=== PATIENT | female | born 1930 | race Caucasian/White ===

== ENCOUNTER 2018-03-03 18:42 | Emergency (ER) | payer OTHER ==
[~2018-03-03] VITALS: Ht 162.6 cm; Wt 65.8 kg
[2018-03-03] MEDS ORDERED: METOPROLOL TARTRATE 50 MG TAB PO ONE (19:00)
[2018-03-03] MEDS ORDERED: MORPHINE SULFATE 4 MG/ML SYR/VIAL IV ONE (21:30)
[2018-03-03] MEDS ORDERED: ONDANSETRON HCL 4 MG/2 ML VIAL IV ONE (21:30)
[2018-03-03] MEDS ORDERED: cloNIDine HCL 0.1 MG TAB PO ONE (22:45)
[2018-03-03 22:51] LABS: Urine Amorphous Crystal FEW /hpf (None Seen); Urine Bacteria FEW /hpf (None Seen); Urine Blood Negative /uL (Negative); Urine Hyaline Cast FEW /lpf (0 - 2); Urine Mucus FEW (None Seen); Urine WBC 2 /hpf (0 - 5)
[2018-03-04 01:00] LABS: Eosinophils # (auto) 0 uL; Lymphocytes # (auto) 0.9 uL
[2018-03-04 01:02] LABS: Basophils # (auto) 0 uL; Basophils % (auto) 0.3 % (0.0-2.0); Hematocrit 42.3 % (36.0-46.0); Hemoglobin 13.9 g/dL (12.2-16.2); Mean Corpuscular Hemoglobin 36.6 pg (28.0-32.0); Mean Corpuscular Hgb Conc. 32.9 g/dL (32.0-36.0); Mean Corpuscular Volume 111.1 fL (80.0-100.0); Monocytes % (auto) 11.5 % (0.0-12.0); Neutrophils # (auto) 6.8 uL; Neutrophils % (auto) 78.2 % (37.0-80.0); Nucleated Red Blood Cells % 0.1 %; Platelet Count (auto) 268 10^3/uL (140-450); Red Cell Distribution Width 13.8 % (11.8-14.3); White Blood Cell 8.7 10^3/uL (4.4-10.8)
[2018-03-04 01:17] LABS: Albumin 3.5 g/dL (3.4-5.0); BUN/Creatinine Ratio 13.6; Calcium 9.5 mg/dL (8.5-10.1); Potassium 4.2 mmol/L (3.5-5.1)
[2018-03-04 01:20] LABS: Bilirubin, Total 1.4 mg/dL (0.2-1.0); Total Protein 7.6 g/dL (6.4-8.2)
[2018-03-04 04:26] VITALS: BP 141/67
[2018-03-04] MEDS ORDERED: HYDROcodone-ACET 10/325MG TAB PO ONE (05:15)
== END 2018-03-04 05:20 | disposition home or self-care (01) ==
LOC: EDBD 18:42 → ER 18:45
DX: R22.0 Localized swelling, mass and lump, head (principal); R53.1 Weakness; I10 Essential (primary) hypertension; K21.9 Gastro-esophageal reflux disease without esophagitis; Z87.442 Personal history of urinary calculi
CPT/HCPCS: 36415; 70360; 70490; 80053; 81001; 85025; 93005; 96374; 96375; 99285; J2270; J2405

== ENCOUNTER 2019-01-10 17:29 | Inpatient (IN) | payer OTHER ==
[~2019-01-10] VITALS: Ht 162.6 cm; Wt 64.4 kg
[2019-01-10] MEDS ORDERED: cloNIDine HCL 0.1 MG TAB ONE (17:58)
[2019-01-10] MEDS ORDERED: cloNIDine HCL 0.1 MG TAB PO ONE (18:15)
[2019-01-10 19:15] LABS: Basophils # (auto) 0.1 uL; Eosinophils # (auto) 0 uL; Eosinophils % (auto) 0.4 % (0.0-7.0); Hemoglobin 13.6 g/dL (12.2-16.2); White Blood Cell 5.4 10^3/uL (4.4-10.8)
[2019-01-10 19:18] LABS: Basophils % (auto) 1.1 % (0.0-2.0); Hematocrit 41.4 % (36.0-46.0); Lymphocytes % (auto) 17.7 % (10.0-50.0); Mean Corpuscular Hemoglobin 35.5 pg (28.0-32.0); Mean Corpuscular Hgb Conc. 32.9 g/dL (32.0-36.0); Mean Corpuscular Volume 107.9 fL (80.0-100.0); Monocytes # (auto) 0.4 uL; Monocytes % (auto) 7.2 % (0.0-12.0); Neutrophils % (auto) 73.6 % (37.0-80.0); Nucleated Red Blood Cells % 0.1 %; Platelet Count (auto) 258 10^3/uL (140-450); Red Blood Cells 3.84 10^6/uL (4.0-5.20); Red Cell Distribution Width 13.6 % (11.8-14.3)
[2019-01-10 19:29] LABS: Alanine Aminotransferase 20 U/L (13-56); Albumin 3.7 g/dL (3.4-5.0); Anion Gap 7 (5-15); Aspartate Aminotransferase 16 U/L (15-37); Blood Urea Nitrogen 16 mg/dL (7-18); Calcium 9.5 mg/dL (8.5-10.1); Carbon Dioxide 25 mmol/L (21-32); Chloride 110 mmol/L (98-107); GFR African American 67 mL/min; GFR Non-African American 56 mL/min; Glucose 116 mg/dL (74-106); Potassium 3.7 mmol/L (3.5-5.1); Sodium 142 mmol/L (136-145)
[2019-01-10 19:33] LABS: Alkaline Phosphatase 115 U/L (45-117); Bilirubin, Total 0.9 mg/dL (0.2-1.0); Total Protein 7.1 g/dL (6.4-8.2)
[2019-01-10] MEDS ORDERED: hydrALAZINE HCL 20 MG/ML VL IV ONE (20:30)
[2019-01-10] MEDS ORDERED: TEMAZEPAM 15 MG CAP PO PRN (22:30)
[2019-01-10] MEDS ORDERED: MORPHINE SULF INJ 2 MG/ML SYRINGE 1ML IV PRN (22:30)
[2019-01-10] MEDS ORDERED: ACETAMINOPHEN 325 MG TAB PO PRN (22:30)
[2019-01-10] MEDS ORDERED: DOCUSATE SOD 100 MG CAP PO PRN (22:30)
[2019-01-10] MEDS ORDERED: cloNIDine HCL 0.1 MG TAB PO PRN (22:30)
[2019-01-10] MEDS ORDERED: ONDANSETRON HCL 4 MG/2 ML VIAL IV PRN (22:30)
[2019-01-10] MEDS ORDERED: NITROGLYCERIN 0.4 MG SL TAB SL PRN (22:30)
--- NOTE | 2019-01-10 23:40 | NUR ---
Telemetry admit from ER WORKS,JINNY admitted to Telemetry unit after SBAR received. Patient oriented to GRAHAM BLAIR, primary RN, unit, room, bed, and unit policies regarding patient care and visiting hours. Patient now on continuous telemetry monitoring, tele box #74 and telemetry reading on arrival to unit is SR. Patient weighed by bedscale and encouraged to call if they need something. All questions and concerns addressed, patient verbalized understanding.
[2019-01-11] VITALS (7 sets, daily range): BP systolic 125–168; BP diastolic 68–91
--- NOTE | 2019-01-11 00:10 | NUR ---
Pt states that her daughter will bring in her list of home medications during the day.
[2019-01-11] MEDS ORDERED: PNEUMOCOCCAL VACC POLYS 25 MCG/0.5 ML VIAL IM ONE (01:15)
[2019-01-11 05:59] LABS: BUN/Creatinine Ratio 17.4; Calcium 9.2 mg/dL (8.5-10.1); Potassium 4.3 mmol/L (3.5-5.1)
[2019-01-11 06:09] LABS: Cholesterol 166 mg/dL (< 200); HDL Cholesterol 56 mg/dL (40-59); LDL Cholesterol 96 mg/dL (< 100); Triglycerides 83 mg/dL (< 150)
[2019-01-11] MEDS ORDERED: ENOXAPARIN SOD 40 MG/0.4 ML SYRINGE SC SCH (10:00)
[2019-01-11] MEDS: FAMOTIDINE 20 MG TAB PO SCH ×2 (10:27→22:18)
[2019-01-11] MEDS: ENOXAPARIN SOD 40 MG/0.4 ML SYRINGE SC SCH (10:28)
[2019-01-11] MEDS ORDERED: amLODIPine BESYLATE 5 MG TAB PO ONE (10:30)
[2019-01-11] MEDS ORDERED: OMEP20TA PO (11:00)
[2019-01-11] MEDS ORDERED: FELO5TAB PO (11:00)
[2019-01-11] MEDS ORDERED: METO-159 PO (11:00)
[2019-01-11] MEDS ORDERED: HYDR500C PO (11:00)
[2019-01-11] MEDS ORDERED: SIMV-8 PO (11:02)
--- NOTE | 2019-01-11 15:13 | NUR ---
Call to [facility] Call to [facility] at this time to verify patient's home medications. No answer after 5 minutes. Will attempt to call at another time.
[2019-01-11] MEDS: LISINOPRIL 20 MG TAB PO SCH ×2 (15:17→22:19)
[2019-01-11] MEDS: HYDROXYUREA 500 MG CAP PO SCH (15:17)
[2019-01-11] MEDS ORDERED: METO-158 PO (15:38)
--- NOTE | 2019-01-11 16:00 | NUR ---
Gary Rankin Spoke to Gary Rankin. Metoprolol order verified. Will change existing home medication list in the chart.
--- NOTE | 2019-01-11 18:12 | NUR ---
Pharmacy call/Hydroxyurea Call to pharmacy again to verify hydroxyurea order. Monday order should be a double dose. Orders verified with pharmacist. Tomorrows dose will be a double dose, totaling 1,000 mg.
[2019-01-11] MEDS ORDERED: ATORVASTATIN 20 MG TAB PO SCH (22:00)
[2019-01-11] MEDS: ATORVASTATIN 20 MG TAB PO SCH (22:18)
--- NOTE | 2019-01-11 23:29 | NUR ---
report given to Ruma CALLES
--- NOTE | 2019-01-11 23:30 | NUR ---
RECEIVED REPORT FROM MARLI AVALOS WILL ASSUME CARE OF PATIENT. PATIENT IS SLEEPING IN BED. NO S/S OF DISTRESS NOTED. FALL PRECAUTIONS IN PLACE. CALL LIGHT WITHIN REACH.
[2019-01-12 04:51] VITALS: BP 157/78
[2019-01-12 06:12] LABS: Basophils # (auto) 0.1 uL; Basophils % (auto) 1.9 % (0.0-2.0); Eosinophils # (auto) 0.1 uL; Eosinophils % (auto) 1.1 % (0.0-7.0); Hematocrit 38.5 % (36.0-46.0); Hemoglobin 13.2 g/dL (12.2-16.2); Lymphocytes # (auto) 1.2 uL; Mean Corpuscular Hgb Conc. 34.2 g/dL (32.0-36.0); Mean Corpuscular Volume 108.1 fL (80.0-100.0); Monocytes # (auto) 0.6 uL; Monocytes % (auto) 11.2 % (0.0-12.0); Neutrophils # (auto) 3.2 uL; Neutrophils % (auto) 62.8 % (37.0-80.0); Nucleated Red Blood Cells % 0.1 %; Platelet Count (auto) 260 10^3/uL (140-450); Red Blood Cells 3.56 10^6/uL (4.0-5.20); Red Cell Distribution Width 13.7 % (11.8-14.3); White Blood Cell 5.1 10^3/uL (4.4-10.8)
[2019-01-12 06:38] LABS: Calcium 9.5 mg/dL (8.5-10.1); Potassium 3.6 mmol/L (3.5-5.1)
--- NOTE | 2019-01-12 06:52 | NUR ---
CLOSING PATIENT RESTING IN BED. NO S/S OF DISTRESS. RT AT BEDSIDE GIVING SCHEDULED MED NEB TX CALL LIGHT WITHIN REACH WILL ENDORSE CARE TO CRYSTAL RN Addendum: 01/12/19 at 0655 by Ruma Black RN DISREGARD NOTE. INCORRECT PATIENT PATIENT SLEEPING. NO S/S OF DISTRESS. FALL PRECAUTIONS IN PLACE. WILL ENDORSE CARE TO NAZARIO CALLES
--- NOTE | 2019-01-12 07:15 | NUR ---
Opening Shift Note Report received and assumed care of patient, awake and alert. No S/S of distress/SOB or pain. Instructed on POC,Nursing routines,needing urine specimen, call light within reach patient reminded instructed to call for assistance, PRN,patient verbalized understanding, will continue to monitor for changes Q1hr and PRN.
[2019-01-12 08:40] LABS: Urine Bacteria NONE SEEN /hpf (None Seen); Urine Blood Negative /uL (Negative); Urine Mucus FEW (None Seen); Urine Specific Gravity 1.011 (1.001-1.035); Urine WBC 1 /hpf (0 - 5)
[2019-01-12 08:59] VITALS: BP 165/83
--- NOTE | 2019-01-12 09:05 | NUR ---
DR.L. ARGUETA CALLED RECEIVED ORDER FOR MRA OF THE NECK
--- NOTE | 2019-01-12 09:16 | NUR ---
PHYSICAL THERAPY OOB AMBULATED WITH PHYSICAL THERAPIST IN HALLWAY WITH WALKER,BACK TO BED TOLERATED ACTIVITY WELL,NO C/O PAIN NO DISCOMFORT OR DISTRESS.
[2019-01-12] MEDS: amLODIPine BESYLATE 5 MG TAB PO SCH (09:46)
[2019-01-12] MEDS: LISINOPRIL 20 MG TAB PO SCH ×2 (09:47→22:27)
[2019-01-12] MEDS: FAMOTIDINE 20 MG TAB PO SCH ×2 (09:48→22:26)
[2019-01-12] MEDS: PANTOPRAZOLE 40 MG TAB PO SCH (09:48)
[2019-01-12] MEDS: HYDROXYUREA 500 MG CAP PO SCH (09:49)
[2019-01-12] MEDS: ENOXAPARIN SOD 40 MG/0.4 ML SYRINGE SC SCH (09:50)
[2019-01-12] MEDS ORDERED: HYDROXYUREA 500 MG CAP PO SCH (10:00)
--- NOTE | 2019-01-12 10:00 | NUR ---
PATIENT REFUSED MRA OF NECK TO BE DONE,RE ASSURED AND EXPLAINED INDICATION AND WILL GET MEDICATION TO RELAX HER FOR PROCEDURE BUT STILL REFUSED.
--- NOTE | 2019-01-12 10:15 | NUR ---
CALLED AND LEFT MESSAGE TO James ARGUETA RE PATIENT REFUSING MRA
[2019-01-12 13:04] VITALS: BP 156/74
[2019-01-12 16:26] VITALS: BP 163/82
--- NOTE | 2019-01-12 17:00 | NUR ---
DAUGHTER AT BEDSIDE VISITING
--- NOTE | 2019-01-12 18:00 | NUR ---
RADIOLOGY CALLED,PATIENT FOR CTA,PATIENT EATING DINNER,PATIENT INSTRUCTED NOT TO EAT OR DRINK FOR 4 HOURS FOR CTA PROCEDURE VERBALIZED UNDERSTANDING.
--- NOTE | 2019-01-12 19:05 | NUR ---
Opening note Received report from day shift RN. Patient is A&O X's 4 with no s/s of distress. Patient denies SOB or chest pain. Educated patient that she has a CT test scheduled for 10PM and she will not be able to eat or drink anything until that is complete. Patient verbalized understanding and agreed to have it done tonight. Educated patient on POC and to use call light when in need of assistance. Patient verbalized understanding. Patient has walker available at bedside and within reach of patient. Set bed alarm for safety. Bed is in lowest/locked position with side rails up X's 2 and call light is within reach of patient. Will continue care
[2019-01-12] MEDS ORDERED: HYDROXYUREA 500 MG CAP PO ONE (21:00)
[2019-01-12] MEDS ORDERED: IOHEXOL 350 MG/ML 100ML IJ ONE (21:24)
--- NOTE | 2019-01-12 21:33 | NUR ---
PATIENT LEFT TO RADIOLOGY Patient to radiology for test. Patient has been NPO since dinner. Patient taken down in wheelchair, she is A&O X's 4 and shows no s/s of distress.
[2019-01-12 22:00] VITALS: BP 152/81
[2019-01-12] MEDS: ATORVASTATIN 20 MG TAB PO SCH (22:25)
--- NOTE | 2019-01-12 23:14 | NUR ---
ORTHOSTATIC VS laying down: 158/73 HR 69 sittin/73 HR 68 Standin/81 HR 71
[2019-01-13 05:01] VITALS: BP 156/77
[2019-01-13 07:48] LABS: Basophils # (auto) 0.1 uL; Lymphocytes # (auto) 1.4 uL; White Blood Cell 4.5 10^3/uL (4.4-10.8)
[2019-01-13 07:52] LABS: Basophils % (auto) 2.3 % (0.0-2.0); Eosinophils # (auto) 0.1 uL; Eosinophils % (auto) 1.8 % (0.0-7.0); Hemoglobin 13.7 g/dL (12.2-16.2); Lymphocytes % (auto) 30.1 % (10.0-50.0); Mean Corpuscular Hemoglobin 37.2 pg (28.0-32.0); Mean Corpuscular Hgb Conc. 35.2 g/dL (32.0-36.0); Mean Corpuscular Volume 105.7 fL (80.0-100.0); Monocytes # (auto) 0.5 uL; Monocytes % (auto) 11.2 % (0.0-12.0); Neutrophils # (auto) 2.5 uL; Neutrophils % (auto) 54.6 % (37.0-80.0); Nucleated Red Blood Cells % 0.1 %; Platelet Count (auto) 271 10^3/uL (140-450); Red Blood Cells 3.69 10^6/uL (4.0-5.20); Red Cell Distribution Width 13.5 % (11.8-14.3)
[2019-01-13 07:54] LABS: BUN/Creatinine Ratio 18.6; Calcium 9.5 mg/dL (8.5-10.1)
--- NOTE | 2019-01-13 08:00 | NUR ---
Opening Shift Note Assumed care of patient, awake, alert and oriented X4. No S/S of distress/SOB or pain. Tele# 74, sinus rhythm @ 71 bpm. IV to left antecubital, 18 gauge, patent and saline locked. Instructed on POC and to call for assist PRN, verbalized understanding. Bed locked, in lowest position, call light within reach, will continue to monitor for changes Q1hr and PRN.
[2019-01-13 09:00] VITALS: BP 154/71
[2019-01-13] MEDS: HYDROXYUREA 500 MG CAP PO SCH (09:37)
[2019-01-13] MEDS: LISINOPRIL 20 MG TAB PO SCH (09:38)
[2019-01-13] MEDS: amLODIPine BESYLATE 5 MG TAB PO SCH (09:38)
[2019-01-13] MEDS: PANTOPRAZOLE 40 MG TAB PO SCH (09:38)
[2019-01-13] MEDS: FAMOTIDINE 20 MG TAB PO SCH (09:38)
[2019-01-13] MEDS: ENOXAPARIN SOD 40 MG/0.4 ML SYRINGE SC SCH (09:39)
[2019-01-13 13:00] VITALS: BP 126/62
[2019-01-13] MEDS ORDERED: LISI-646 PO (14:47)
--- NOTE | 2019-01-13 14:50 | NUR ---
Call placed to Dr Higginbotham and Dr Lemus. Per Dr James Guzmán, we need clearance from Neurology and Cardiology before discharge. Awaiting return call.
--- NOTE | 2019-01-13 15:00 | NUR ---
Return call received from Dr Lemus, verbalized cleared from Cardiology for discharge and patient to follow up with Cardiology within 1-2 weeks. Awaiting return call from Dr Higginbotham.
--- NOTE | 2019-01-13 15:03 | NUR ---
ROUNDS Dr James Guzmán at bedside for rounds, new orders received and followed through. Patient updated on plan of care, verbalized understanding.
--- NOTE | 2019-01-13 15:54 | NUR ---
NEUROLOGY Return call received from Dr Higginbotham, verbalized patient is cleared for discharge home from Neurology.
[2019-01-13 16:05] VITALS: BP 126/62
[2019-01-13 17:00] VITALS: BP 143/66
--- NOTE | 2019-01-13 17:56 | NUR ---
Discharge instructions given as ordered. Encourage to follow up with PMD as instructed. All questions and concerns addressed. Patient verbalized understanding. Medication reconciliation form completed and copy given to patient. Home medications held in Pharmacy returned to patient. IV removed with catheter intact, pressure dressing applied. Telemetry unit returned to ICU. Patient awaiting transportation.
--- NOTE | 2019-01-13 17:56 | NUR ---
ORTHOSTATICS Patient educated on Orthostatics.
--- NOTE | 2019-01-13 18:12 | NUR ---
Patient taken to vehicle via wheelchair with all personal belongings, accompanied by staff and family member. No distress noted at time of departure.
--- NOTE | 2019-01-14 08:52 | NUR ---
01/13/19 [address] amb[address] hallway using FWW x50ft w/ CGA. Pt was issued HEP for strengthening UE and LE along w/ red and green TB. Reviewed and discussed with patient exercises for understanding. Addendum: 01/14/19 at 0854 by Jami Ruano PT Amended: Links added.
--- NOTE | 2019-01-14 18:10 | NUR ---
D/C Planning Per consult for home health safety evaluation and physical therapy. No call or Page by bedside RN. Contacted and faxed medical records to [facility] unable to accept Pt. Per Nicolle from [facility]:) Fax:( [phone]) Pt has been accepted and service to start within 48hrs upon d/c day. Contacted [facility]:) Fax:) faxed medical records requesting for authorization to be given to [facility]. Followed up call to [facility] spoke to Nicolle. Nicolle advised me authorization was received. Addendum: 01/14/19 at 1816 by DAVID MEYER Amended: Links added.
== END 2019-01-13 18:35 | disposition home health service (06) | DRG 305 ==
LOC: EDUNIT# 17:29 → EDBD 17:29 → ER 17:38 → TELE 17:39 → TELE-WESTW 23:35
PROVIDERS: ADMIT Nurse Practitioner; ATTEND Internal Medicine
DX: I16.0 Hypertensive urgency (principal); I16.1 Hypertensive emergency; I10 Essential (primary) hypertension; J32.0 Chronic maxillary sinusitis; K21.9 Gastro-esophageal reflux disease without esophagitis; E66.9 Obesity, unspecified; D45 Polycythemia vera; E78.5 Hyperlipidemia, unspecified; I65.29 Occlusion and stenosis of unspecified carotid artery; Z87.442 Personal history of urinary calculi; Z90.710 Acquired absence of both cervix and uterus; Z79.899 Other long term (current) drug therapy; Z68.24 Body mass index [BMI] 24.0-24.9, adult
CPT/HCPCS: 36415; 70450; 70496; 70498; 71045; 80048; 80053; 80061; 81001; 84443; 84484; 85025; 93306; 93886; 96374; 97116; 97530; G0378

== ENCOUNTER 2020-08-03 13:22 | Emergency (ER) | payer OTHER ==
[~2020-08-03] VITALS: Ht 162.6 cm; Wt 65.8 kg
[~2020-08-03 13:22] MED LIST: FELO5TAB3 PO; HYDR500C PO; LISI-646 PO; OMEP20TA PO; SIMV-8 PO
[2020-08-03] MEDS ORDERED: cloNIDine HCL 0.1 MG TAB PO ONE (14:00)
[2020-08-03 14:57] LABS: Eosinophils # (auto) 0 10 ^3/uL (0-0.8); Hemoglobin 13.6 g/dL (12.2-16.2); Lymphocytes # (auto) 1.3 10 ^3/uL (0.4-5.4); Monocytes # (auto) 0.5 10 ^3/uL (0-1.3)
[2020-08-03 15:00] LABS: Basophils # (auto) 0 10 ^3/uL (0-0.2); Basophils % (auto) 0.8 % (0.0-2.0); Eosinophils % (auto) 0.2 % (0.0-7.0); Hematocrit 41.1 % (36.0-46.0); Lymphocytes % (auto) 22.1 % (10.0-50.0); Mean Corpuscular Hemoglobin 36.9 pg (28.0-32.0); Mean Corpuscular Volume 111.6 fL (80.0-100.0); Monocytes % (auto) 9.2 % (0.0-12.0); Neutrophils % (auto) 67.7 % (37.0-80.0); Nucleated Red Blood Cells % 0.1 %; Platelet Count (auto) 376 10^3/uL (140-450); Red Blood Cells 3.68 10^6/uL (4.0-5.20)
[2020-08-03 15:04] LABS: Albumin 3.7 g/dL (3.4-5.0); Anion Gap 8 (5-15); Blood Urea Nitrogen 16 mg/dL (7-18); Calcium 9.9 mg/dL (8.5-10.1); Carbon Dioxide 25 mmol/L (21-32); Chloride 106 mmol/L (98-107); Glucose 102 mg/dL (74-106); Potassium 3.9 mmol/L (3.5-5.1); Sodium 139 mmol/L (136-145)
[2020-08-03 15:12] LABS: Alanine Aminotransferase 19 U/L (13-56); Alkaline Phosphatase 110 U/L (45-117); Aspartate Aminotransferase 14 U/L (15-37); BUN/Creatinine Ratio 12.4; Bilirubin, Total 0.9 mg/dL (0.2-1.0); GFR African American 50 mL/min; GFR Non-African American 41 mL/min; Total Protein 7.3 g/dL (6.4-8.2)
[2020-08-03 16:18] VITALS: BP 144/55
== END 2020-08-03 16:21 | disposition home or self-care (01) ==
LOC: ER 13:22
DX: R07.89 Other chest pain (principal); I10 Essential (primary) hypertension; K21.9 Gastro-esophageal reflux disease without esophagitis; E78.5 Hyperlipidemia, unspecified; Z79.899 Other long term (current) drug therapy; Z87.442 Personal history of urinary calculi; Z90.710 Acquired absence of both cervix and uterus; Z98.890 Other specified postprocedural states
CPT/HCPCS: 36415; 71045; 80053; 84484; 85025; 93005